=== PATIENT | male | born 1985 | race Caucasian/White ===

== ENCOUNTER 2016-12-06 15:46 | Emergency (ER) | payer BC ==
[2016-12-06 16:31] VITALS: BP 151/98
--- NOTE | 2016-12-06 17:33 | UC ---
Throat Pain/Nasal Behzad HPI - HPI Summary HPI Summary: ONE WEEK OF COUGH CONGESTION FEVER AND CHILLS - History of Current Complaint Chief Complaint: UCRespiratory Stated Complaint: COUGH CONGESTION Time Seen by Provider: 12/06/16 16:47 Hx Obtained From: Patient Pain Intensity: 0 Pain Scale Used: 0-10 Numeric Cough: Nonproductive Associated Signs & Symptoms: Positive: Sinus Discomfort, Nasal Discharge, Fever - Epiglottits Risk Factors Epiglottis Risk Factors: Negative - Allergies/Home Medications Allergies/Adverse Reactions: Allergies Allergy/AdvReac Type Severity Reaction Status Date / Time No Known Allergies Allergy Verified 12/06/16 16:26 PMH/Surg Hx/FS Hx/Imm Hx Previously Healthy: Yes - Surgical History Surgical History: None - Family History Known Family History: Negative: Respiratory Disease - Social History Occupation: Employed Full-time Lives: With Family Alcohol Use: Occasionally Substance Use Type: None Smoking Status (MU): Former Smoker Length of Time of Smoking/Using Tobacco: 03/2014 Have You Smoked in the Last Year: Yes - Immunization History Most Recent Influenza Vaccination: NONE Most Recent Tetanus Shot: UTD Most Recent Pneumonia Vaccination: N/A Review of Systems Constitutional: Fever, Chills Skin: Negative Eyes: Negative ENT: Nasal Discharge Respiratory: Cough Cardiovascular: Negative Gastrointestinal: Negative Genitourinary: Negative Motor: Negative Neurovascular: Negative Musculoskeletal: Negative Neurological: Negative Psychological: Negative All Other Systems Reviewed And Are Negative: Yes Physical Exam Triage Information Reviewed: Yes Appearance: Well-Appearing, No Pain Distress, Well-Nourished Vital Signs: Initial Vital Signs Temp 98.4 F 12/06/16 16:27 Pulse 75 12/06/16 16:27 Resp 18 12/06/16 16:27 BP 151/98 12/06/16 16:27 Pulse Ox 98 12/06/16 16:27 Vital Signs Reviewed: Yes Eye Exam: Normal Eyes: Positive: Conjunctiva Clear ENT: Positive: Hearing grossly normal, TM bulging, TM dull Dental Exam: Normal Neck exam: Normal Neck: Positive: Supple, Nontender Respiratory Exam: Normal Respiratory: Positive: Chest non-tender, Lungs clear, Normal breath sounds, No respiratory distress, No accessory muscle use Cardiovascular Exam: Normal Cardiovascular: Positive: RRR, No Murmur, Pulses Normal Abdominal Exam: Normal Abdomen Description: Positive: Nontender, No Organomegaly Musculoskeletal Exam: Normal Neurological Exam: Normal Psychological Exam: Normal Psychological: Positive: Normal Response To Family Skin Exam: Normal Throat Pain/Nasal Course/Dx - Differential Dx/Diagnosis Differential Diagnosis/HQI/PQRI: Otitis Media, Pharyngitis, Sinusitis, URI Provider Diagnoses: SINUSITIS Discharge - Discharge Plan Condition: Stable Disposition: HOME Prescriptions: Amoxicillin/Clavulanate TAB* [Augmentin TAB 875*] 875 mg PO BID #20 tab Benzonatate CAP* [Tessalon 100 MG CAP*] 100 mg PO TID PRN #15 cap PRN Reason: Cough Fluticasone NASAL SPRAY 50MCG* [Flonase NASAL SPRAY 50MCG*] 2 spray BOTH NARES DAILY #1 btl Patient Education Materials: Sinusitis (ED) Referrals: [facility]FERR[facility] [Outside] No Primary Care Phys,NOPCP [Primary Care Provider] -
== END 2016-12-06 17:00 | disposition home or self-care (01) ==
LOC: UCCORT 15:46
DX: J32.9 Chronic sinusitis, unspecified (principal); Z87.891 Personal history of nicotine dependence
CPT/HCPCS: 99212; G0463

== ENCOUNTER 2018-11-12 18:01 | Emergency (ER) | payer BC ==
[2018-11-12 18:54] VITALS: BP 149/83
--- NOTE | 2018-11-12 19:06 | UC ---
Knee Pain HPI - HPI Summary HPI Summary: Pt presents c/o left knee pain. pt reports that he "twisted" his left knee when he fell snowboarding over the weekend, then had worsening pain today when playing lacrosse and twisting left knee and heard a "pop" and sudden onset of pain more on lateral side of knee. Pt states that left knee feels swollen and has difficulty extending left knee completely due to pain and swelling. - History of Current Complaint Chief Complaint: UCLowerExtremity Stated Complaint: LEFT KNEE CONCERN Time Seen by Provider: 11/12/18 18:56 Hx Obtained From: Patient Onset/Duration: Sudden Onset Severity Initially: Moderate Severity Currently: Moderate Pain Intensity: 0 Character: Dull, Aching, Stiffness Aggravating Factor(s): Movement, Weight Bearing, Prolonged Standing, Stairs Alleviating Factor(s): Rest, Position Associated Signs And Symptoms: Positive: Swelling Able to Bear Weight: Yes - Risk Factors Septic Arthritis Risk Factor: Negative Gout Risk Factor: Male - Allergies/Home Medications Allergies/Adverse Reactions: Allergies Allergy/AdvReac Type Severity Reaction Status Date / Time No Known Allergies Allergy Verified 11/12/18 18:50 Home Medications: Home Medications NK [No Home Medications Reported] 11/12/18 [History Confirmed 11/12/18] PMH/Surg Hx/FS Hx/Imm Hx Previously Healthy: Yes - Surgical History Surgical History: None - Family History Known Family History: Negative: Respiratory Disease - Social History Occupation: Employed Full-time Lives: With Family Alcohol Use: Weekly Substance Use Type: None Smoking Status (MU): Former Smoker Length of Time of Smoking/Using Tobacco: 03/2014 Have You Smoked in the Last Year: Yes - Immunization History Most Recent Influenza Vaccination: NONE Most Recent Tetanus Shot: UTD Most Recent Pneumonia Vaccination: N/A Review of Systems All Other Systems Reviewed And Are Negative: Yes Constitutional: Positive: Negative Skin: Positive: Negative Eyes: Positive: Negative ENT: Positive: Negative Respiratory: Positive: Negative Cardiovascular: Positive: Negative Gastrointestinal: Positive: Negative Genitourinary: Positive: Negative Motor: Positive: Decreased ROM - pain with extension Musculoskeletal: Positive: Arthralgia, Decreased ROM, Edema, Myalgia Neurological: Positive: Negative Psychological: Positive: Negative Is Patient Immunocompromised?: No Physical Exam Triage Information Reviewed: Yes Appearance: Well-Appearing Vital Signs: Initial Vital Signs Temp 99.3 F 11/12/18 18:50 Pulse 69 11/12/18 18:50 Resp 16 11/12/18 18:50 BP 149/83 11/12/18 18:50 Pulse Ox 99 11/12/18 18:50 Vital Signs Reviewed: Yes Eye Exam: Normal ENT Exam: Normal Dental Exam: Normal Neck exam: Normal Respiratory Exam: Normal Cardiovascular Exam: Normal Musculoskeletal: Positive: Strength Intact, ROM Intact - pain with ROM, Edema @ - left knee mild swelling Neurological Exam: Normal Psychological Exam: Normal Skin Exam: Normal Knee Pain Course/Dx - Differential Dx/Diagnosis Differential Diagnosis/HQI/PQRI: Internal Derangement Of Knee, Sprain, Strain Provider Diagnosis: Left knee sprain Discharge - Sign-Out/Discharge Documenting (check all that apply): Patient Departure All imaging exams completed and their final reports reviewed: No Studies - Discharge Plan Condition: Stable Disposition: HOME Patient Education Materials: Knee Sprain (ED), Knee Pain (ED) Referrals: Angel Valencia MD [Medical Doctor] - As Soon As Possible Eli Ortiz MD [Medical Doctor] - As Soon As Possible Alberto Grayson MD [Medical Doctor] - As Soon As Possible No Primary Care Phys,NOPCP [Primary Care Provider] - - Billing Disposition and Condition Condition: STABLE Disposition: Home - Attestation Statements Provider Attestation: Per institutional requirements, I have reviewed the chart, however, I was not consulted specifically or made aware of this patient by the midlevel provider. I did not personally evaluate, interact with , or disposition this patient.
== END 2018-11-12 19:15 | disposition home or self-care (01) ==
LOC: UCCORT 18:01
DX: S83.92XA Sprain of unspecified site of left knee, initial encounter (principal); X50.9XXA Other and unspecified overexertion or strenuous movements or postures, initial encounter; Y93.23 Activity, snow (alpine) (downhill) skiing, snowboarding, sledding, tobogganing and snow tubing; Y92.9 Unspecified place or not applicable; Z87.891 Personal history of nicotine dependence
CPT/HCPCS: 99211; G0463

== ENCOUNTER 2018-12-12 06:05 | Day surgery (SDC) | payer BC ==
[~2018-12-12 06:05] MED LIST: Buffered Lidocaine 1% SYRIN* 1 ML/SYRINGE INTRADERM ONE; Famotidine IV* 10 MG/ML 2 ML (20 mg) IV ONE; Lactated Ringers 1000 ML Bag* 1,000 ML IV SCH
[2018-12-12] MEDS ORDERED: Famotidine IV* 10 MG/ML 2 ML (20 mg) ONE (06:22)
[2018-12-12] MEDS ORDERED: ceFAZolin 2 GM in NS PREMIX(*) 2 GM/100 ML BAG IVPB ONE (06:23)
[2018-12-12] MEDS ORDERED: Lidocaine 1% MPF wEPI 200,000* 30 ML SDV ONE (06:54)
[2018-12-12] MEDS ORDERED: Ropivacaine* 2 MG/ML 20 ML VIAL (0.2%) ONE (06:55)
[2018-12-12] MEDS ORDERED: fentaNYL* 50 MCG/ML 2 ML VIAL (100 MCG VIAL) ONE ×2 (08:30→08:49)
[2018-12-12] MEDS ORDERED: Midazolam* 1 MG/ML 5 ML VIAL (5 MG) ONE (08:30)
[2018-12-12] MEDS ORDERED: Dexamethasone IV* 4 MG/ML 1 ML (4 MG) ONE (08:52)
[2018-12-12] MEDS ORDERED: Lidocaine 2% PF * 5 ML VIAL ONE (08:52)
[2018-12-12] MEDS ORDERED: DiMENhydriNATE IV* 50 MG/ML VIAL ONE ×2 (08:52→11:15)
[2018-12-12] MEDS ORDERED: Succinylcholine* 20 MG/ML 10 ML VIAL ONE (08:52)
[2018-12-12] MEDS ORDERED: Propofol* 10 MG/ML 20 ML BTL ONE (08:52)
[2018-12-12] MEDS ORDERED: Ondansetron INJ* 2 MG/ML VIAL ONE (08:52)
[2018-12-12] MEDS ORDERED: Ketorolac INJ* 30 MG/ML 1 ML VIAL ONE (08:52)
[2018-12-12] MEDS ORDERED: HYDROcodone/ACETAMIN 5-325 MG* 1 TAB PO PRN (09:39)
[2018-12-12] MEDS ORDERED: DiMENhydriNATE IV* 50 MG/ML VIAL IV PUSH PRN (09:39)
[2018-12-12] MEDS ORDERED: Naloxone* 0.4 MG/ML 1 ML VIAL IV PRN (09:39)
[2018-12-12] MEDS ORDERED: HYDROmorphone INJ1* 1 MG/ML SYRINGE ONE ×2 (10:30→10:58)
[2018-12-12] MEDS ORDERED: HYDROcodone/ACETAMIN 5-325 MG* 1 TAB ONE (10:58)
[2018-12-12] MEDS: HYDROmorphone INJ1* 1 MG/ML SYRINGE IV PRN ×5 (10:59→12:07)
[2018-12-12 12:21] VITALS: BP 143/84
--- NOTE | 2018-12-13 16:39 | OP ---
DATE OF OPERATION: 12/12/18 [facility] DATE OF : 87 SURGEON: Yeimy Pop MD FINANCIAL DEVELOPER: YANET Rider. An retail loan originator assistant was needed for the entirety of the case to help with positioning, retraction, and was utilized throughout all portions of the case. ANESTHESIOLOGIST: Dr. Cordero. ANESTHESIA: General. PRE-OP DIAGNOSIS: Left knee grade 3 anterior cruciate ligament rupture. POST-OP DIAGNOSES: 1. Left knee grade 3 anterior cruciate ligament rupture. 2. Lateral meniscus radial split tearing. OPERATIVE PROCEDURE: Left knee arthroscopy with: 1. ACL reconstruction using BTB autograft. 2. Partial lateral meniscectomy. COMPLICATIONS: None. ESTIMATED BLOOD LOSS: Minimal. TOURNIQUET TIME: 22 minutes at 250 mmHg. IMPLANTS USED: Two Hobbs and Nephew SOFTSILK screws, one was 7 x 20 and the other was 9 x 25. INDICATIONS: Ryne Gallagher is a 33-year-old male, who is very active, had snowboarding injury, who had persistent pain and instability in his knees. He was diagnosed with an ACL rupture. 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 He has elected to proceed with surgical treatment. The risks and benefits were discussed at length including, but not limited to, bleeding; infection; damage to nerves, vessels, surrounding structures; wound nonhealing; persistent pain; need for further surgery; scarring; stiffness; incomplete relief of symptoms; risk of anesthesia. DESCRIPTION OF PROCEDURE: The patient was greeted in the preoperative area by the attending surgeon. Correct extremity was marked. Consent was confirmed. The patient was brought back to the operating suite where he was placed in the supine position on the operating table and underwent general anesthesia with endotracheal intubation. He was appropriately positioned in the bed. Lateral post was positioned. An unsterile tourniquet was placed high on the proximal thigh and a sandbag was placed to keep the knee at 90 degrees at the edge of bed. The left leg was then prepped and draped in the usual sterile fashion beginning with chlorhexidine soap, scrub, and alcohol wipe and a final prep with ChloraPrep. After appropriate surgical pause indicating side, site, procedure, and administration of antibiotics, the knee was intra-articularly injected with 1% lidocaine with epi. An Esmarch was used to exsanguinate the limb. The tourniquet was inflated to 250 mmHg. A midline incision was made on the patellar tendon using 15-blade. The soft tissues were carefully dissected to expose the paratenon. There was an abundant scar tissue present within the bursa. The care was taken not to damage the patellar tendon. Once the tendon was identified, it was found to be quite wide, almost 40 mm in width. The center 10 mm were then harvested in full- thickness flaps using a 10-blade. Proximally, the bone block was then harvested for a 9 x 23 mm bone block, distally was 10 x 30 mm. The bone block was harvested using sagittal saw and osteotome. The graft was then prepared on the back table by the retail loan originator assistant. Meanwhile, I closed the patellar tendon with 0 Vicryl in an interrupted fashion. After this portion was completed, attention was directed to the arthroscopy portion. With the lateral portal made through the capsule, the fat pad was identified. The anteromedial portal was made using an 18-gauge needle for localization. Shaver was used to debride this back. The ACL was found to be completely torn off the femoral portion and was not intact. The evelyn and biters were used to debride back the ACL stump. Once this was completed, a diagnostic arthroscopy was done. The patellofemoral joint had grade 0 changes and the mediolateral gutters were intact without any loose debris. The medial compartment had grade 0 changes with an intact medial meniscus. Lateral compartment had some fissuring on the tibial plateau with grade 0 and 1 changes and lateral radial split tear in the body of the meniscus, that is only in the white zone, this was debrided back using evelyn and biters. The lateral femoral condyle had grade 0 changes. After this was completed, attention was directed to the notch. The knee was placed at 90 degrees. The shaver was used to debride the remainder of the ACL, the lateral wall was repaired in the usual fashion. The starting awl was used to make a provisional captain/airline pilot hole as a reference point for the femoral tunnel. The scope was brought through the medial portal to confirm so that the positioning of the tunnel would be appropriate. After this was done , the attention was directed to tibial tunnel. With a tip-to-tip guide set to about 50 degrees, the guidewire was placed in the center of the tibial footprint. This was then overdrilled with a size 10 mm full-bore reamer. All loose debris was removed from the tunnel. The tunnel was then rasped. Care was placed to prevent fluid egress. Once this was done, the attention was directed to femoral tunnel with the Hobbs and Nephew straight guide placed in the center of the femoral tunnel using the previous captain/airline pilot hole as a reference point. The knee was then hyperflexed. The Beath pin was then placed in the center of the footprint and drilled. This was checked to make sure the position was appropriate. The patient had very good quality bone. Once the Beath pin was placed in appropriate position, 9 mm low-profile reamer was used to drill to a depth of about 25 to 27 mm. The excess bone and debris was removed. The tunnel was visualized and found to have a good back wall. The tunnel was then notched. A #2 Ethibond was passed through the eyelet of the Beath pin and passed through the lateral aspect of the femur and then in an anterograde fashion through the tibia. The graft which had been wrapped in a saline-soaked gauze was placed under tension, was brought to the field and then placed with excellent purchase to be well seated in femoral tunnel. The femoral plug was then secured with a 7 x 20 SOFTSILK screw with excellent purchase. Knee was then cycled approximately 15 times to remove any stress and creep from the graft. The scope was brought back to the joint. The graft was found to be in the same position. No evidence of tearing or stretch. The knee was then placed in about 20 to 30 degrees of flexion with tension on the tibial sutures up in the tibial bone block. A size 9 x 25 mm screw was then used to secure the tibia with excellent purchase. The knee was taken through range of motion. Joshua was assessed and found to be stable. The knee was brought back to 90 degrees. Scope was positioned into the joint and found to be in appropriate position. Final images were obtained and the wounds were copiously irrigated with sterile saline. Excess bone graft was placed in the patellar and then the tibial bone block and oversewn with 0 Vicryl. The paratenon was closed with 2-0 Vicryl in a running fashion. The skin was closed in layers with 3-0 Monocryl for subcutaneous as well as running subcuticular suture. The wounds were then injected with 0.2% ropivacaine. Sterile dressings were applied with Cryo/Cuff and a hinged knee brace locked in 0 degree. The patient was then awoken from anesthesia, transferred to PACU in stable condition. POSTOPERATIVE PLAN: He will be weightbearing as tolerated with the brace for 4 weeks. He will be discharged with pain medication, DVT prophylaxis considered but deferred due to no previous personal or family history. I will see the patient back in 6 to 8 days. [id number]/[facility] #: [id number] RENA
== END 2018-12-12 12:50 | disposition home or self-care (01) ==
LOC: OR 06:05
PROVIDERS: ATTEND Orthopaedic Surgery
DX: S83.512A Sprain of anterior cruciate ligament of left knee, initial encounter (principal); X50.1XXA Overexertion from prolonged static or awkward postures, initial encounter; Y93.65 Activity, lacrosse and field hockey; Y92.328 Other athletic field as the place of occurrence of the external cause
CPT/HCPCS: C1713; J0330; J0690; J1100; J1170; J1240; J1885; J2001; J2250; J2405; J2704; J2795; J3010